=== PATIENT | male | born 1955 | race Caucasian/White ===

== ENCOUNTER 2022-05-07 09:12 | Emergency (ER) | payer MEDICARE | END 2022-05-07 10:14 | disposition home or self-care (01) | LOC: BURERS 09:12 | DX: L03.011 Cellulitis of right finger (principal); I10 Essential (primary) hypertension; E11.9 Type 2 diabetes mellitus without complications; F17.210 Nicotine dependence, cigarettes, uncomplicated | CPT/HCPCS: 99283 ==